=== PATIENT | female | born 1990 | race Caucasian/White ===

== ENCOUNTER 2018-12-26 09:58 | Emergency (ER) | payer BC, MEDICAID, OTHER ==
--- NOTE | 2018-12-26 10:25 | EDM.PDOC ---
ED HPI GENERAL MEDICAL PROBLEM - General Chief Complaint: Upper Extremity Injury/Pain Stated Complaint: LEFT ARM PAIN Time Seen by Provider: 12/26/18 10:18 Source of Information: Reports: Patient History Limitations: Reports: No Limitations - History of Present Illness INITIAL COMMENTS - FREE TEXT/NARRATIVE: Patient comes to ER with complaint of gradually worsening left elbow pain in medial and lateral areas. Started approximately one week ago. No history of similar pain in past. Denies any specific recent change in activity/lifting. 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 Some generalized numbness in all fingertips at times. Denies neck/shoulder pain. No history of neck or shoulder injuries. No other complaints. Trying OTC meds to help with discomfort with minimal relief. 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: Acetaminophen, NSAIDS Left Elbow Pain Score (Numeric/FACES): 8 - Related Data Allergies Allergy/AdvReac Type Severity Reaction Status Date / Time No Known Allergies Allergy Verified 12/26/18 09:59 Home Meds: Home Meds Acetaminophen [Tylenol Extra Strength] 100 mg PO ASDIRECTED PRN 12/26/18 [ History] Ibuprofen 400 mg PO ASDIRECTED PRN 12/26/18 [History] Past Medical History Musculoskeletal History: Reports: Other (See Below) (medial/lateral epicondylitis suspected 12/26/18) Social & Family History - Recreational Drug Use Recreational Drug Use: No Drug Use in Last 12 Months: No Review of Systems - Review of Systems Review Of Systems: ROS reveals no pertinent complaints other than HPI. ED EXAM, GENERAL - Physical Exam Exam: See Below Exam Limited By: No Limitations General Appearance: Alert, WD/WN, No Apparent Distress Eye Exam: Bilateral Eye: EOMI, PERRL Nose: No: Nasal Deformity, Nasal Swelling, Nasal Drainage Throat/Mouth: Normal Lips, Normal Voice, No Airway Compromise Head: Atraumatic, Normocephalic Neck: Supple Respiratory/Chest: No Respiratory Distress Cardiovascular: Normal Peripheral Pulses, No Edema Extremities: Normal Capillary Refill, Other (moderately tender with palpation over medial epicondyle and lateral epicondyle and nearby tissues. 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 Range of motion intact but patient reports discomfort when asked to fully extend the affected left arm. ) Neurological: Alert, Oriented, CN II-XII Intact, Normal Cognition, Normal Gait Psychiatric: Normal Affect, Normal Mood Skin Exam: Warm, Dry, Intact, Normal Color Course - Vital Signs Last Recorded V/S: Last Vital Signs Temp 36.4 C 12/26/18 10:27 Pulse 73 12/26/18 10:27 Resp 16 12/26/18 10:27 BP 124/77 12/26/18 10:27 Pulse Ox 99 12/26/18 10:27 - Re-Assessments/Exams Free Text/Narrative Re-Assessment/Exam: Suspect overuse injury. Pattern indicates likely epicondylitis both medially and laterally. Work restrictions given for next few days--to avoid all lifting/ pulling/pushing with left arm. To continue PRN Aleve or Ibuprofen, can also use Tylenol to help with discomfort. Recommend follow up with Ortho Walk In clinic for evaluation and further work restrictions, may need referral to PT. To follow up otherwise as needed. Departure - Departure Time of Disposition: 10:22 Disposition: Home, Self-Care 01 Condition: Good Clinical Impression: Epicondylitis - Discharge Information *PRESCRIPTION DRUG MONITORING PROGRAM REVIEWED*: Not Applicable *COPY OF PRESCRIPTION DRUG MONITORING REPORT IN PATIENT [place]: Not Applicable Instructions: [facility], [facility] Referrals: Radha June MD [Primary Care Provider] - Forms: ED Department Discharge Additional Instructions: No lifting until you are evaluated by Ortho walk-in in [place] tomorrow. Have them make recommendations for treatment/PT and determine lifting restrictions. Follow up as directed locally or with Ortho. Ice/rest for now. OK to take Ibuprofen or Aleve. OK to take Tylenol. Gentle stretching recommended. Follow up otherwise as needed for acute worsening problems.
== END 2018-12-26 10:48 | disposition home or self-care (01) ==
LOC: LL.ED 09:58
DX: M77.12 Lateral epicondylitis, left elbow (principal); M77.02 Medial epicondylitis, left elbow
CPT/HCPCS: 99283

== ENCOUNTER 2021-02-21 07:43 | Emergency (ER) | payer BC ==
[2021-02-21] MEDS: Ondansetron 4 MG Tab.DIS PO ONE (07:53)
[2021-02-21] MEDS: Ketorolac 60 MG/2 ML SDV IM ONE (07:53)
--- NOTE | 2021-02-21 10:40 | EDM.PDOC ---
ED HPI GENERAL MEDICAL PROBLEM - General Chief Complaint: General Stated Complaint: abdominal pain Time Seen by Provider: 02/21/21 08:10 Source of Information: Reports: Patient History Limitations: Reports: No Limitations - History of Present Illness INITIAL COMMENTS - FREE TEXT/NARRATIVE: Sudden right lower pain in suprapubic area when going in to work at [employer] this morning. Radiated to back. Nausea but no vomiting. No history of same in past. No fevers/chills or other accompanying symptoms. [place] fine prior to episode. Had normal menstrual cycle earlier this month. Tubal ligation/denies chance . /monogamous relationship with . No UTI complaints. pelvic/left flank Pain Score (Numeric/FACES): 9 - Related Data Allergies Allergy/AdvReac Type Severity Reaction Status Date / Time No Known Allergies Allergy Verified 02/21/21 07:44 Home Meds: Home Meds Acetaminophen [Tylenol Extra Strength] 100 mg PO ASDIRECTED PRN 12/26/18 [History] Ibuprofen 400 mg PO ASDIRECTED PRN 12/26/18 [History] traMADol HCl [Tramadol HCl] 50 mg PO Q6H PRN #8 tablet 02/21/21 [Rx] Past Medical History LMP (Approximate): Other (See Below) (Rupture ovarian cyst 02/21/21) Musculoskeletal History: Reports: Other (See Below) (medial/lateral epicondylitis suspected 12/26/18) ED ROS GENERAL - Review of Systems Review Of Systems: Comprehensive ROS is negative, except as noted in HPI. ED EXAM, GENERAL - Physical Exam Exam: See Below Exam Limited By: No Limitations General Appearance: Alert, WD/WN, Mild Distress Eye Exam: Bilateral Eye: EOMI, PERRL Ears: Hearing Grossly Normal Nose: No: Nasal Deformity, Nasal Swelling, Nasal Drainage Throat/Mouth: Normal Lips, Normal Voice, No Airway Compromise Head: Atraumatic, Normocephalic Neck: Supple, Non-Tender, Full Range of Motion Respiratory/Chest: No Respiratory Distress, Lungs Clear, Normal Breath Sounds, No Accessory Muscle Use, Chest Non-Tender Cardiovascular: Regular Rate, Rhythm, No Murmur GI/Abdominal: Normal Bowel Sounds, Soft, No Distention (Female) Exam: Normal External Exam, Adnexal Tenderness (right). No: Cervix Motion Tenderness, Vaginal Bleeding, Vaginal Discharge Rectal (Female) Exam: Deferred Back Exam: Normal Inspection Extremities: Normal Inspection, Normal Capillary Refill Neurological: Alert, Oriented, Normal Cognition, Normal Gait Psychiatric: Normal Affect, Normal Mood Skin Exam: Warm, Dry, Intact, Normal Color Course - Vital Signs Last Recorded V/S: Last Vital Signs Temp 36.7 C 02/21/21 08:00 Pulse 89 02/21/21 08:00 Resp 16 02/21/21 08:00 BP 149/88 H 02/21/21 08:00 Pulse Ox 100 02/21/21 08:00 - Orders/Labs/Meds Orders: Active Orders 24 hr Category Date Time Status Pelvis Non OB Comp [US] Stat Exams 02/21/21 08:40 Taken Transvaginal Non OB [US] Stat Exams 02/21/21 08:40 Taken Labs: Laboratory Tests 02/21/21 02/21/21 02/21/21 Range/Units 07:48 08:01 08:01 WBC 9.8 (4.0-10.2) K/uL RBC 4.59 (3.77-5.09) M/uL Hgb 13.8 (11.7-15.5) g/dL Hct 39.7 (34.0-46.0) % MCV 86.5 (84.0-98.0) fL MCH 30.1 (28.2-33.3) pg MCHC 34.8 (31.7-36.0) g/dL RDW 12.5 (11.2-14.1) % Plt Count 347 (150-350) K/uL Neut % (Auto) 63.9 (45.0-80.0) % Lymph % (Auto) 27.4 (10.0-50.0) % [place] % (Auto) 7.1 (2.0-14.0) % Eos % (Auto) 1.4 (0.0-5.0) % Baso % (Auto) 0.2 (0.0-2.0) % Neut # (Auto) 6.28 (1.40-7.00) K/uL Lymph # (Auto) 2.69 (0.50-3.50) K/uL [place] # (Auto) 0.70 (0.00-1.00) K/uL Eos # (Auto) 0.14 (0.00-0.50) K/uL Baso # (Auto) 0.02 (0.00-0.20) K/uL HCG, Qual Negative (NEGATIVE) Specimen Type Urincc Urine Color Yellow Urine Appearance Cloudy Urine pH 8.5 (5.0-9.0) Ur Specific [place] 1.015 (1.005-1.030) Urine Protein Negative (NEGATIVE) mg/dL Urine Glucose (UA) Negative (NEGATIVE) mg/dL Urine Ketones Negative (NEGATIVE) mg/dL Urine Occult Blood Negative (NEGATIVE) Urine Nitrite Negative (NEGATIVE) Urine Bilirubin Negative (NEGATIVE) Urine Urobilinogen 0.2 (0.2-1.0) E.U./dL Ur Leukocyte Esterase Negative (NEGATIVE) Urine RBC 0-5 /HPF Urine WBC 0-5 /HPF Ur Epithelial Cells Moderate H /LPF Urine Bacteria Moderate H (NONE TO FEW) /HPF Meds: Medications Discontinued Medications Generic Name Dose Route Start Last Admin Trade Name Freq PRN Reason Stop Dose Admin Ketorolac Tromethamine 60 mg 02/21/21 07:49 02/21/21 07:53 Ketorolac 60 Mg/2 Ml Sdv IM 02/21/21 07:50 60 mg ONETIME ONE Administration Ondansetron HCl 4 mg 02/21/21 07:50 02/21/21 07:53 Ondansetron 4 Mg Tab.Dis PO 02/21/21 07:51 4 mg ONETIME ONE Administration - Re-Assessments/Exams Free Text/Narrative Re-Assessment/Exam: 02/21/21 10:47 CBC/UA/hcg unremarkable. Zofran given for nausea US study arranged. Noted to have 2.27 complext right ovarian cyst with complex fluid collection posterior cul de sac. Suspect acute ruptured ovarian cyst. Pain much improved after time/toradol. Plan at this time is to discharge patient home. PRN Tramadol Rx. No work for 2 days. Follow up as needed. Departure - Departure Time of Disposition: 10:37 Disposition: Home, Self-Care 01 Condition: Good Clinical Impression: Rupture of cyst of right ovary - Discharge Information *PRESCRIPTION DRUG MONITORING PROGRAM REVIEWED*: Not Applicable *COPY OF PRESCRIPTION DRUG MONITORING REPORT IN PATIENT [place]: Not Applicable Prescriptions: traMADol HCl [Tramadol HCl] 50 mg PO Q6H PRN #8 tablet PRN Reason: Pain Instructions: Ovarian Cyst Referrals: Yady Mariano PA [Primary Care Provider] - Forms: ED Department Discharge Additional Instructions: Home/rest today and tomorrow. Follow up for recheck if you have additional problems/concerns or if pain starts to worsen. Sepsis Event Note (ED) - Focused Exam Vital Signs: Vital Signs Temp Pulse Resp BP Pulse Ox 02/21/21 08:00 36.7 C 89 16 149/88 H 100 - My Orders Last 24 Hours: My Active Orders 02/21/21 08:40 Pelvis Non OB Comp [US] Stat Transvaginal Non OB [US] Stat - Assessment/Plan Last 24 Hours: My Active Orders 02/21/21 08:40 Pelvis Non OB Comp [US] Stat Transvaginal Non OB [US] Stat
== END 2021-02-21 10:47 | disposition home or self-care (01) ==
LOC: LL.ED 07:43
DX: N83.201 Unspecified ovarian cyst, right side (principal)
CPT/HCPCS: 36415; 76830; 76856; 81001; 84703; 85025; 96372; 99284-25; A9270-GY; J1885